=== PATIENT | female | born 1960 | race Caucasian/White ===

== ENCOUNTER 2022-12-01 01:25 | Emergency (ER) | payer OTHER ==
[~2022-12-01] VITALS: Ht 167.6 cm; Wt 158.8 kg
[2022-12-01 01:25] VITALS: BP 135/70; PULSE 71; RESP 18; TEMP 97.6; O2SAT 97
[2022-12-01] MEDS ORDERED: MECLIZINE 25 MG TAB PO ONE (04:10)
[2022-12-01] MEDS ORDERED: FLUC150T PO (04:14)
[2022-12-01] MEDS ORDERED: METR-435 PO (04:14)
[2022-12-01] MEDS ORDERED: [UNRECOGNIZED DRUG - CODE] PO (04:14)
[2022-12-01] MEDS ORDERED: MECL-303 PO (04:14)
[2022-12-01 04:44] VITALS: O2SAT 97
[2022-12-01] MEDS ORDERED: DIAZ5TAB6 PO (04:52)
[2022-12-01] MEDS ORDERED: diazePAM 5 MG TAB PO ONE (04:55)
[2022-12-01] MEDS ORDERED: ONDA8TAB87 PO (05:26)
[2022-12-01 09:29] VITALS: BP 111/61; PULSE 60; RESP 16; TEMP 97.7; O2SAT 94
== END 2022-12-01 09:29 | disposition home or self-care (01) ==
LOC: MED 01:25
DX: N39.0 Urinary tract infection, site not specified (principal); R42 Dizziness and giddiness; I11.9 Hypertensive heart disease without heart failure; E11.9 Type 2 diabetes mellitus without complications; Z79.4 Long term (current) use of insulin; Z79.899 Other long term (current) drug therapy
CPT/HCPCS: 81002; 87086; 99283; J8597